=== PATIENT | male | born 1950 | race Caucasian/White ===

== ENCOUNTER 2020-05-15 16:18 | Inpatient (IN) | payer OTHER ==
[~2020-05-15 16:18] MED LIST: Heparin 1,000 UNITS/ML VIAL ONE
[2020-05-15 17:30] LABS: #Basophils 0.1 thou/uL (0.0-0.2); #Eosinphils 0.2 thou/uL (0.0-0.7); #Lymphocytes 1.3 thou/uL (1.20-3.40); #Monocytes 0.9 thou/uL (0.11-0.59); #Neutrophils 12.2 thou/uL (1.40-6.50); %Basophils 0.4 % (0.0-1.0); %Eosinophils 1.1 % (0.0-10.0); %Lymphocytes 8.7 % (21.0-51.0); %Monocytes 6.4 % (0.0-10.0); %Neutrophils 83.4 % (42.0-75.0); Hemoglobin 10.7 g/dL (14.0-18.0); Mean Corpuscular HGB CONC 31.9 g/dL (32.0-36.0); Mean Corpuscular Hemoglobin 26.9 pg (27.0-31.0); Mean Corpuscular Volume 84.4 fL (78.0-98.0); Mean Platelet Volume 7.2 fL (7.4-10.4); Platelet Count 316 thou/uL (130-400); Red Blood Cell (RBC) Count 3.98 mill/uL (4.70-6.10); White Blood Cell (WBC) Count 14.6 thou/uL (4.8-10.8)
--- NOTE | 2020-05-15 17:39 | RAD ---
RADIOGRAPH CHEST 1 VIEW: DATE: 05/15/2020 TIME: 5:20 PM HISTORY: 70-year-old male with fever. COMPARISON: 05/12/2020 FINDINGS: New finding of mild small region of haziness at right lung base. The rest of the lungs remain clear. No cardiomegaly or pneumothorax. Sternotomy wires. IMPRESSION: New mild faint patchy density at right lung base: Atelectasis versus pneumonia. Recommend follow-up.
[2020-05-15 18:18] LABS: ALT (SGPT) Less than 7 U/L (8-55); AST (SGOT) 9 U/L (5-34); Albumin 2.5 g/dL (3.4-4.8); Alkaline Phosphatase 112 U/L (40-110); Anion Gap 13 mmol/L (10-20); BUN (Urea Nitrogen) 26 mg/dL (8.4-25.7); Bilirubin, Total 0.4 mg/dL (0.2-1.2); Calc. Creatinine Clearance 0 mL/min (70-130); Calcium 7.8 mg/dL (7.8-10.44); Carbon Dioxide 26 mmol/L (23-31); Chloride 103 mmol/L (98-107); Estimated GFR-MDRD 62; Globulin 4.1 g/dL (2.4-3.5); Glucose 118 mg/dL (80-115); Potassium 3.8 mmol/L (3.5-5.1); Protein, Total 6.6 g/dL (5.8-8.1); Sodium 138 mmol/L (136-145)
[2020-05-15 19:11] LABS: Bilirubin Negative (Negative); Blood, Urine 3+ (Negative); Clarity Extra Turbid (Clear); Glucose, Urine (Dipstick) Normal (Negative); Ketone, Urine Negative (Negative); Leukocyte 500 Leu/uL (Negative); Nitrite Negative (Negative); Protein, Urine (Dipstick) 100 mg/dL (Neg-Trace); RBC/HPF Greater than 50 HPF (0-3); Specific Gravity, Urine 1.017 (1.002-1.036); Squamous Epithelial 0-3 HPF (0-3); Urobilinogen Normal mg/dL (Less than 2); WBC/HPF Greater than 50 HPF (0-3); pH, Urine 6.5 (5.0-9.0)
[2020-05-15] MEDS ORDERED: HYDROcodone/Acetaminophen 5/325 mg Tablet PO PRN (19:28)
[2020-05-15] MEDS ORDERED: Calcium Carbonate 500 MG ChewTAB PO PRN (19:28)
[2020-05-15] MEDS ORDERED: Acetaminophen 325 MG TAB PO PRN (19:28)
[2020-05-15] MEDS ORDERED: Acetaminophen 650 MG Suppository PR PRN (19:28)
[2020-05-15] MEDS ORDERED: Guaifenesin DM 100-10/5 ML UDCUP PO PRN (19:28)
[2020-05-15 19:32] LABS: Bacteria/HPF 1+ HPF (None Seen); Yeast-Budding Rare HPF (None Seen)
--- NOTE | 2020-05-15 19:34 | PDOC.HHP ---
Hospitalist HPI - History of Present Illness fever History of Present Illness: Case of an 70y/o male with pmhx of DM, htn, hld, pvd, systolic chf, cad s/p cabg on 04/17/2020 who was brought to hospital for evaluation for fever and picc line placement. apparently he was on his usual state of health until a few days ago when he started with fever, patient is a very poor historian and states he was getting abx but does not know for what, [facility] charts reports he was been treated for uti. at ed patient was evaluated and found in sepsis with elevated wbc count with a possible rll pneumonia, also there was suppuration from his sternotomy site. patient denies any cough dysuria chest pain fever chills but there was reported fever at [facility]. Hospitalist ROS - Review of Systems All other systems reviewed; all pertinent +/- noted in HPI/Subj Hospitalist History - Past Surgical History Past Surgical History: reports: CABG Other Surgical History: l partial foot amputation r aka - Family History Family History: reports: no pertinent history - Social History Smoking Status: Current some day smoker Alcohol: reports: None Drugs: reports: none - Exam General Appearance: NAD, ill appearing Eye: PERRL, anicteric sclera ENT: normocephalic atraumatic, no oropharyngeal lesions Neck: supple, symmetric, no JVD, no thyromegaly Heart: RRR, no murmur, no gallops, no rubs Respiratory: CTAB, no wheezes, no rales, no ronchi Gastrointestinal: soft, non-tender, non-distended, normal bowel sounds Extremities: no clubbing, no edema Skin: normal turgor, no lesions, no rashes Neurological: cranial nerve grossly intact, normal sensation to touch, no weakness Musculoskeletal: normal tone, normal strength, no muscle wasting Psychiatric: normal affect, normal behavior, A&O x 3 Hospitalist Results - Labs Result Diagrams: 05/15/20 17:23 05/15/20 17:23 Lab results: WBC 14.6 thou/uL (4.8-10.8) H 05/15/20 17:23 Hgb 10.7 g/dL (14.0-18.0) L 05/15/20 17:23 Hct 33.6 % (42.0-52.0) L 05/15/20 17:23 MCV 84.4 fL (78.0-98.0) 05/15/20 17:23 Plt Count 316 thou/uL (130-400) 05/15/20 17:23 Neutrophils % 83.4 % (42.0-75.0) H 05/15/20 17:23 Sodium 138 mmol/L (136-145) 05/15/20 17:23 Potassium 3.8 mmol/L (3.5-5.1) 05/15/20 17:23 Chloride 103 mmol/L (98-107) 05/15/20 17:23 Carbon Dioxide 26 mmol/L (23-31) 05/15/20 17:23 BUN 26 mg/dL (8.4-25.7) H 05/15/20 17:23 Creatinine 1.16 mg/dL (0.7-1.3) 05/15/20 17:23 Glucose 118 mg/dL (80-115) H 05/15/20 17:23 Lactic Acid 2.4 mmol/L (0.5-2.2) H 05/15/20 17:23 Calcium 7.8 mg/dL (7.8-10.44) 05/15/20 17:23 Total Bilirubin 0.4 mg/dL (0.2-1.2) 05/15/20 17:23 AST 9 U/L (5-34) 05/15/20 17:23 ALT Less than 7 U/L (8-55) L 05/15/20 17:23 Alkaline Phosphatase 112 U/L (40-110) H 05/15/20 17:23 Serum Total Protein 6.6 g/dL (5.8-8.1) 05/15/20 17:23 Albumin 2.5 g/dL (3.4-4.8) L 05/15/20 17:23 Urine Ketones Negative mg/dL (Negative) 05/15/20 18:24 Urine Blood 3+ (Negative) A 05/15/20 18:24 Urine Nitrite Negative (Negative) 05/15/20 18:24 Ur Leukocyte Esterase 500 Rory/uL (Negative) A 05/15/20 18:24 Urine RBC Greater than 50 HPF (0-3) A 05/15/20 18:24 Urine WBC Greater than 50 HPF (0-3) A 05/15/20 18:24 Ur Squamous Epith Cells 0-3 HPF (0-3) 05/15/20 18:24 Urine Bacteria 1+ HPF (None Seen) A 05/15/20 18:24 Hospitalist H&P A/P - Problem (1) Sepsis Code(s): A41.9 - SEPSIS, UNSPECIFIED ORGANISM Status: Acute (2) Pneumonia Code(s): J18.9 - PNEUMONIA, UNSPECIFIED ORGANISM Status: Acute (3) CAD (coronary artery disease) Code(s): I25.10 - ATHSCL HEART DISEASE OF [place] CORONARY ARTERY W/O ANG PCTRS Status: Acute (4) UTI (urinary tract infection) Status: Acute - Plan Plan: Case of an 70y/o male with the stated pmhx who present with sepsis secondary to pneumonia sepsis secondary to pneumonia - elevated wbc at 14k + elevated LA 2.8 + fever with a cxr consistent rll pneumonia - sepsis bundles started ivfs given, cultures taken started on broad spectrum abx - recent hospitalization in this month for CABG - will continue with zosyn + vanc, will order mrsa colonization swab adjust abx as needed - f/u LA - f/u cultures - duo nebs uti - apparently was been treated at [facility] for uti - will order u/a w reflex culture - should be covered with zosyn cad / htn / chf / hld - continue home meds sternotomy dehiscence - mild dehiscence with purulent secretions - wound care consulted - should be covered w van+zosyn
[2020-05-15 20:25] LABS: Lactic Acid 2.1 mmol/L (0.5-2.2)
[2020-05-15 20:27] LABS: SARS-CoV-2 NAA Rapid Test Not Detected (NotDetected)
[2020-05-15] MEDS ORDERED: Dextrose 5% in Water 1,000 ML IV PRN (20:45)
[2020-05-15] MEDS ORDERED: Dextrose 50% Abboject 50 ML SYRINGE SLOW IVP PRN (20:45)
[2020-05-15] MEDS ORDERED: Piperacillin/Tazobactam 4.5 GM in Sodium Chloride 0.9% 100 ML IVPB SCH (23:59)
[2020-05-16 00:15] VITALS: BMI 19.5
[2020-05-16] MEDS ORDERED: Vancomycin 1.5 GRAM/300 ML BAG 1.5 GM in Premix Bag 1 BAG IVPB SCH (01:00)
[2020-05-16] MEDS: Insulin Glargine 10 UNITS in Pre-Filled Syringe 1 EACH SC SCH ×2 (01:11→20:06)
[2020-05-16] MEDS: Sodium Chloride 0.9% 1,000 ML IV SCH ×2 (01:11→15:30)
[2020-05-16] MEDS: Piperacillin/Tazobactam 4.5 GM in Sodium Chloride 0.9% 100 ML IVPB SCH ×4 (03:51→20:07)
[2020-05-16] MEDS: HumaLOG 300 UNITS/3 ML VIAL SC PRN ×3 (05:46→17:35)
[2020-05-16 09:01] LABS: Hemoglobin 8.9 g/dL (14.0-18.0); Mean Corpuscular HGB CONC 33.3 g/dL (32.0-36.0); Mean Corpuscular Hemoglobin 28.9 pg (27.0-31.0); Mean Corpuscular Volume 86.8 fL (78.0-98.0); Platelet Count 255 thou/uL (130-400); RBC Distribution Width 14.6 % (11.5-14.5); Red Blood Cell (RBC) Count 3.07 mill/uL (4.70-6.10); White Blood Cell (WBC) Count 9.4 thou/uL (4.8-10.8)
[2020-05-16 09:27] LABS: ALT (SGPT) Less than 7 U/L (8-55); AST (SGOT) 16 U/L (5-34); Alkaline Phosphatase 84 U/L (40-110); Anion Gap 27 mmol/L (10-20); BUN (Urea Nitrogen) 20 mg/dL (8.4-25.7); Bilirubin, Total 0.3 mg/dL (0.2-1.2); Calc. Creatinine Clearance 80 mL/min (70-130); Calcium 6.3 mg/dL (7.8-10.44); Carbon Dioxide 19 mmol/L (23-31); Chloride 107 mmol/L (98-107); Estimated GFR-MDRD Greater than 90; Globulin 3.7 g/dL (2.4-3.5); Glucose 211 mg/dL (80-115); Potassium 3.2 mmol/L (3.5-5.1); Protein, Total 5.7 g/dL (5.8-8.1); Sodium 150 mmol/L (136-145)
[2020-05-16] MEDS: Enoxaparin Sodium 40 MG/0.4 ML SYRINGE SC SCH (09:30)
[2020-05-16 11:12] LABS: Band 6 % (5-11); Eosinophils 1 % (0-10); Lymphocytes 6 % (21-51); MDiff Complete? YES; Metamyelocyte 1 % (0-0); Monocytes 4 % (0-10); Neutrophil 82 % (42-75); Platelet Morphology Comment Appears Adequate; Polychromasia SLIGHT = 2-3 cells (100X) (0-2/hpf)
--- NOTE | 2020-05-16 11:29 | SPC ---
Right upper extremity PICC placement sonographic guided HISTORY: Sepsis. FINDINGS: After explaining the procedure and answering all questions, the right upper extremity was p repped and draped in usual sterile fashion. Sterile technique, buffered local anesthesia, sonographic guidance, and a 22-gauge needle were used t o carefully access the right brachial vein. Standard technique was used to place the tip of a 5 [place] single lumen PICC so that the tip lies at the level of the superior vena cava. Catheter was flushed and secured externally. Patient tolerated the procedure well and was returned in unchanged condition. Fluoroscopy time 0 seconds. IMPRESSION : Right upper extremity PICC is ready for use.
[2020-05-16] MEDS: Vancomycin 1 GM in Premix Bag 1 BAG IVPB SCH (11:40)
--- NOTE | 2020-05-16 14:05 | ULT ---
Bilateral renal ultrasound CLINICAL INDICATION: Urinary tract infection with bacteremia. COMPARISON: None. FINDINGS: Right kidney: There is no evidence of a renal mass, renal calculus, or hydronephrosis seen. The right kidney measures 12.8 cm x 5 cm. Left kidney: Tiny 0.9 cm hypoechoic structure is seen within the midportion renal sinus fat which is difficult to further characterize on this exam. This may potentially represent a parapelvic renal cyst. There is otherwise no evidence of a renal mass, renal calculus, or hydronephrosis involving the left kidney.The left kidney measures 12.4 cm x 5.7 cm. Urinary bladder: Prevoid urinary bladder volume is 399 mL. There is echogenic material seen dependent ly within the urinary bladder which is likely related to debris. Follow-up evaluation is recommended. IMPRESSION: 1. No evidence of hydronephrosis. 2. Too small to characterize subcentimeter hypoechoic structure in the midportion renal sinus fat lef t kidney probably related to small parapelvic renal cysts. 3. Echogenic material seen dependently within the urinary bladder probably related to moderate amount of debris within the urinary bladder. Urinary bladder volume on prevoid imaging is 399 mL. Post void image was not obtained.
--- NOTE | 2020-05-16 17:07 | CON ---
DATE OF CONSULTATION: 05/16/2020 REASON FOR CONSULTATION: Bacteremia and concern with postop sternotomy site infection. HISTORY OF PRESENT ILLNESS: A 70-year-old who has a history of peripheral vascular disease, type 2 diabetes, hypertension, and coronary artery disease with prior bypass graft surgery on April [address] [facility], who was at the [facility] and developed fever. There was some dehiscence of the lower segment of the sternotomy site, so there was a concern with an infection there. Currently, the patient is awake. He is eating some ice cream. He denies any headaches. No visual symptoms, sore throat, odynophagia, or dysphagia. No vomiting, hematemesis, melena, or hematochezia. No dyspnea or cough. No pain at the sternotomy site. He has had some wounds in the left saphenectomy donor site in the left lower extremity, but those are granulating well as noted in the physical exam. He is voiding without difficulty. Denies any dysuria. No urinary retention or incontinence. PAST MEDICAL HISTORY: Type 2 diabetes, hypertension, peripheral vascular disease, prior AKA amputation right side, CHF, ischemic cardiomyopathy, bypass graft surgery, and right AKA. FAMILY HISTORY: Type 2 diabetes. SOCIAL HISTORY: Current smoker. Lives between [place] and [facility]. Alcohol, none. . No drug use. ALLERGIES: NONE. CURRENT MEDICATIONS: 1. Enoxaparin. 2. Zosyn. 3. Vancomycin. PHYSICAL EXAMINATION: VITAL SIGNS: He is afebrile, blood pressure 140/80, heart rate 92, respiratory rate 16, O2 saturation 98%. SKIN: Shows the wound in left leg medial aspect, which has a granulation about 100% at the base of the wound with very little undermining. The sternotomy site has a little bit of dehiscence in the lower segment. Very minimal erythema. I did not see any drainage at the time of the exam. No tenderness or swelling or drainage noted. The patient has a peripheral IV access. No Tucker catheter. No lymphadenopathy. HEENT: Ocular movements conjugate. Oral cavity normal except for very few remaining teeth in place. NECK: Supple. No jugular vein distention. LUNGS: Symmetric. Clear breath sounds. HEART: S1 and S2. Regular rate without murmurs. ABDOMEN: Soft, flat, not distended or tender. No ascites. : No bladder distention. No suprapubic tenderness. No genital abnormalities. EXTREMITIES: Pulses are 1+ in popliteal, left side. Femorals are 1+ in right and left side. AKA stump site has healed properly. NEUROLOGIC: Nonfocal. He is awake, knows his name, the name of the hospital, and the year. LABORATORY DATA: White cell count 14.6, down to 9.4; hemoglobin 8.9; platelets 255 with 82% neutrophils. Sodium 150, creatinine 0.82. Liver profile normal. Calcium 6.3, albumin down to 2.0. Urinalysis greater than 50 wbc's. SARS-CoV-2 PCR negative. Microbiology with Staphylococcus aureus retrieved from the surgical site. Proteus mirabilis from the blood culture and urine. IMAGING: There is a chest x-ray with patchy density right lung base. ASSESSMENT: Ischemic heart disease, type 2 diabetes, recent coronary bypass graft with some dehiscence of the lower end of the sternotomy site, fever associated with bacteremia due to Proteus, and pyuria. DISCUSSION: The differential diagnosis includes pyelonephritis, urinary retention, prostatitis, cystitis with bacteremia. This is likely reason for the patient's fever in the rehab and not the sternotomy site. Sternotomy site has some dehiscence, but is not overtly infected. There might be some superficial, but I think this can be managed with wound care alone and maybe a brief course of antimicrobial tx while in the hospital. He probably can be discharged with Bactrim for his UTI once the initial phase of treatment is completed. Check ultrasound of kidney and bladder. Job ID: [id number] [facility]
--- NOTE | 2020-05-16 17:38 | PDOC.HOSPP ---
- Subjective Encounter Date: 05/16/20 Encounter Time: 08:00 Subjective: Patient is seen for follow-up bacteremia. He denies chest pain or shortness of breath. - Objective Vital Signs & Weight: Vital Signs (12 hours) Temp Pulse Resp BP Pulse Ox 05/16/20 16:00 98.6 F 100 16 141/67 H 98 05/16/20 11:47 98.4 F 92 16 144/82 H 98 05/16/20 08:29 95 05/16/20 07:37 98.1 F 88 16 151/78 H 95 05/16/20 07:00 78 18 95 Weight Admit Weight 148 lb Weight 148 lb Result Diagrams: 05/16/20 08:43 05/16/20 08:43 Additional Labs: Accuchecks 05/16/20 05/16/20 05/16/20 11:35 04:34 00:18 POC Glucose 296 H 211 H 202 H Labs and MAR reviewed by me Hospitalist ROS - Review of Systems Gastrointestinal: denies: nausea, vomiting, abdominal pain, diarrhea, constipation, melena, hematochezia Genitourinary: denies: dysuria, frequency, incontinence, hematuria, retention - Medication Medications: Active Medications Generic Name Dose Route Start Last Admin Trade Name Freq PRN Reason Stop Dose Admin Albuterol/Ipratropium 3 ml 05/16/20 01:00 05/16/20 07:00 Ipratropium/Albuterol Sulfate 3 Ml Neb NEB 3 ml [id number] PAM Administration Enoxaparin Sodium 40 mg 05/16/20 09:00 05/16/20 09:30 Enoxaparin Sodium 40 Mg/0.4 Ml Syringe SC Not Given 0900 PAM Sodium Chloride 1,000 mls @ 50 mls/hr 05/15/20 19:30 05/16/20 15:30 Normal Saline 0.9% IV Not Given .Q20H PAM Insulin Glargine 10 units/ 0.1 mls @ 0 mls/hr 05/15/20 21:00 05/16/20 01:11 Miscellaneous Medication SC Not Given HS PAM Vancomycin HCl 1 gm/ Device 200 mls @ 200 mls/hr 05/16/20 12:00 05/16/20 11:40 IVPB 200 mls 1200,2359 PAM Administration Piperacillin Sod/Tazobactam 100 mls @ 200 mls/hr 05/16/20 03:00 05/16/20 14:06 Sod 4.5 gm/ Sodium Chloride IVPB 100 mls 0300,0900,1500,2100 PAM Administration Insulin Human Lispro 0 units 05/15/20 20:45 05/16/20 11:39 Humalog 300 Units/3 Ml Vial SC 4 unit .MILD SLIDING SCALE PRN Administration Mild Correctional Scale - Exam General Appearance: awake alert Eye: anicteric sclera ENT: moist mucosa Neck: supple Heart: RRR, no rubs Respiratory: CTAB Gastrointestinal: soft, non-tender Extremities: no clubbing Psychiatric: normal affect, normal behavior Hosp A/P - Plan -Assessment (1) bacteremia Code(s): A41.9 - SEPSIS, UNSPECIFIED ORGANISM Status: Acute (2) UTI (urinary tract infection) Status: Acute (3) CAD (coronary artery disease) Code(s): I25.10 - ATHSCL HEART DISEASE OF [place] CORONARY ARTERY W/O ANG PCTRS Status: Chronic (4) Pneumonia Code(s): J18.9 - PNEUMONIA, UNSPECIFIED ORGANISM Status: Ruled out - Plan Patient seen by infectious disease service. It is felt that his presentation is secondary to urinary tract infection and not due to sternal wound infection. Continue antibiotics and transition to Bactrim. Urinary tract infection secondary to Proteus mirabilis.
[2020-05-17] MEDS: Vancomycin 1 GM in Premix Bag 1 BAG IVPB SCH (00:58)
[2020-05-17] MEDS: Piperacillin/Tazobactam 4.5 GM in Sodium Chloride 0.9% 100 ML IVPB SCH ×4 (03:10→20:05)
[2020-05-17] MEDS: HumaLOG 300 UNITS/3 ML VIAL SC PRN ×4 (06:21→20:04)
[2020-05-17] MEDS: Enoxaparin Sodium 40 MG/0.4 ML SYRINGE SC SCH (08:06)
[2020-05-17] MEDS: Sodium Chloride 0.9% 1,000 ML IV SCH (08:07)
[2020-05-17 11:20] LABS: Vancomycin, Trough 20.1 ug/mL
[2020-05-17] MEDS: Vancomycin HCl 750 MG in Sodium Chloride 0.9% 250 ML 250 ML IVPB SCH ×2 (13:33→23:51)
--- NOTE | 2020-05-17 17:58 | PDOC.HOSPP ---
- Subjective Encounter Date: 05/17/20 Encounter Time: 08:30 Subjective: Patient seen for follow-up regarding UTI. Denies chest pain or shortness of breath. Denies fever or chills. - Objective Vital Signs & Weight: Vital Signs (12 hours) Temp Pulse Pulse Pulse Resp BP BP 05/17/20 16:32 98.4 F 90 16 05/17/20 13:50 97 97 149/69 H 149/94 H 05/17/20 13:16 81 16 05/17/20 11:14 98.7 F 78 16 05/17/20 08:10 05/17/20 07:57 98.4 F 89 12 BP Pulse Ox 05/17/20 16:32 155/85 H 98 05/17/20 13:50 05/17/20 13:16 97 05/17/20 11:14 163/88 H 97 05/17/20 08:10 98 05/17/20 07:57 150/83 H 98 Weight Admit Weight 148 lb Weight 148 lb I&O: 05/16/20 05/17/20 05/18/20 06:59 06:59 06:59 Intake Total 1300 1600 Output Total 680 600 Balance 620 1000 Result Diagrams: 05/16/20 08:43 05/16/20 08:43 Additional Labs: Accuchecks 05/17/20 05/16/20 04:29 19:50 POC Glucose 212 H 249 H I reviewed patient's labs and MAR Hospitalist ROS - Review of Systems Cardiovascular: denies: chest pain, palpitations, orthopnea, paroxysmal noc. dyspnea, edema Gastrointestinal: denies: nausea, vomiting, abdominal pain, diarrhea, constipation, melena Skin: denies: rash, lesions, kathia, bruising - Medication Medications: Active Medications Generic Name Dose Route Start Last Admin Trade Name Freq PRN Reason Stop Dose Admin Albuterol/Ipratropium 3 ml 05/16/20 01:00 05/17/20 13:16 Ipratropium/Albuterol Sulfate 3 Ml Neb NEB 3 ml [id number] PAM Administration Enoxaparin Sodium 40 mg 05/16/20 09:00 05/17/20 08:06 Enoxaparin Sodium 40 Mg/0.4 Ml Syringe SC 40 mg 0900 PAM Administration Sodium Chloride 1,000 mls @ 50 mls/hr 05/15/20 19:30 05/17/20 08:07 Normal Saline 0.9% IV 1,000 mls .Q20H PAM Administration Insulin Glargine 10 units/ 0.1 mls @ 0 mls/hr 05/15/20 21:00 05/16/20 20:06 Miscellaneous Medication SC 0.1 mls HS PAM Administration Piperacillin Sod/Tazobactam 100 mls @ 200 mls/hr 05/16/20 03:00 05/17/20 15:33 Sod 4.5 gm/ Sodium Chloride IVPB 100 mls 0300,0900,1500,2100 PAM Administration Vancomycin HCl 750 mg/ Sodium 250 mls @ 250 mls/hr 05/17/20 12:00 05/17/20 13:33 Chloride IVPB 250 mls 1200,2359 PAM Administration Insulin Human Lispro 0 units 05/15/20 20:45 05/17/20 17:41 Humalog 300 Units/3 Ml Vial SC 4 unit .MILD SLIDING SCALE PRN Administration Mild Correctional Scale - Exam General Appearance: awake alert Eye: anicteric sclera ENT: moist mucosa Neck: supple Heart: RRR Respiratory: CTAB Gastrointestinal: soft, non-tender Musculoskeletal - other findings: S/p right above-knee amputation Psychiatric: normal affect Hosp A/P - Plan -Assessment (1) UTI (urinary tract infection) Status: Acute (2) bacteremia Code(s): A41.9 - SEPSIS, UNSPECIFIED ORGANISM Status: Acute (3) CAD (coronary artery disease) Code(s): I25.10 - ATHSCL HEART DISEASE OF [place] CORONARY ARTERY W/O ANG PCTRS Status: Chronic (4) Pneumonia Code(s): J18.9 - PNEUMONIA, UNSPECIFIED ORGANISM Status: Ruled out - Plan Continue IV antibiotics for now, switch to Bactrim at the time of discharge. Patient has UTI from Proteus mirabilis. Ambulate patient.
[2020-05-17] MEDS: Insulin Glargine 10 UNITS in Pre-Filled Syringe 1 EACH SC SCH (20:03)
[2020-05-18] MEDS: Piperacillin/Tazobactam 4.5 GM in Sodium Chloride 0.9% 100 ML IVPB SCH ×2 (03:15→08:08)
[2020-05-18] MEDS: HumaLOG 300 UNITS/3 ML VIAL SC PRN ×2 (06:01→11:25)
[2020-05-18] MEDS: Enoxaparin Sodium 40 MG/0.4 ML SYRINGE SC SCH (08:08)
[2020-05-18] MEDS: Sodium Chloride 0.9% 1,000 ML IV SCH ×2 (08:10→12:25)
[2020-05-18 11:28] LABS: #Basophils 0.1 thou/uL (0.0-0.2); #Eosinphils 0.3 thou/uL (0.0-0.7); #Lymphocytes 1.2 thou/uL (1.20-3.40); #Monocytes 0.7 thou/uL (0.11-0.59); #Neutrophils 6.7 thou/uL (1.40-6.50); %Basophils 0.7 % (0.0-1.0); %Eosinophils 3.1 % (0.0-10.0); %Lymphocytes 13.1 % (21.0-51.0); %Monocytes 8.1 % (0.0-10.0); Hemoglobin 10.4 g/dL (14.0-18.0); Mean Corpuscular HGB CONC 32.5 g/dL (32.0-36.0); Mean Corpuscular Hemoglobin 27.6 pg (27.0-31.0); Mean Corpuscular Volume 84.7 fL (78.0-98.0); Platelet Count 409 thou/uL (130-400); RBC Distribution Width 14.5 % (11.5-14.5); Red Blood Cell (RBC) Count 3.77 mill/uL (4.70-6.10); White Blood Cell (WBC) Count 8.9 thou/uL (4.8-10.8)
[2020-05-18 11:37] VITALS: TEMP 98.6
[2020-05-18] MEDS: Vancomycin HCl 750 MG in Sodium Chloride 0.9% 250 ML 250 ML IVPB SCH (11:42)
[2020-05-18 11:52] LABS: ALT (SGPT) Less than 7 U/L (8-55); AST (SGOT) 10 U/L (5-34); Albumin 2.4 g/dL (3.4-4.8); Alkaline Phosphatase 90 U/L (40-110); Anion Gap 14 mmol/L (10-20); BUN (Urea Nitrogen) 10 mg/dL (8.4-25.7); Bilirubin, Total 0.3 mg/dL (0.2-1.2); Calc. Creatinine Clearance 82 mL/min (70-130); Calcium 7.7 mg/dL (7.8-10.44); Carbon Dioxide 25 mmol/L (23-31); Chloride 104 mmol/L (98-107); Estimated GFR-MDRD Greater than 90; Globulin 3.9 g/dL (2.4-3.5); Glucose 260 mg/dL (80-115); Protein, Total 6.3 g/dL (5.8-8.1); Sodium 140 mmol/L (136-145)
[2020-05-18 12:01] LABS: Potassium 2.9 mmol/L (3.5-5.1)
[2020-05-18] MEDS ORDERED: Potassium Chloride 20 MEQ TAB PO SCH (13:00)
[2020-05-18] MEDS ORDERED: cefTRIAXone\\ROCEPHIN 1 GM in Sodium Chloride 0.9% 100 ML IVPB SCH (13:00)
--- NOTE | 2020-05-18 14:33 | PDOC.DS.DS ---
Provider - Provider Date of Admission: 05/15/20 19:28 Date of Discharge: 05/18/20 Admitting Provider: Александр Obregon Consultations: Infectious Disease (Dr. Villar) Primary Care Physician: Rocky Avalos MD Course - Hospital Course Hospital Course: Discharge diagnosis: 1. Sepsis 2. Urinary tract infection 3. Bacteremia 4. Small parapelvic renal cysts 5. hypokalemia 6. Hyponatremia Hospital course: Patient is a pleasant 70-year-old gentleman who was admitted to the hospital on May 15, 2020 for sepsis. There was concern regarding pneumonia but this was ruled out. He had urinary tract infection as well as bacteremia from samples submitted prior to this hospitalization. Urine culture grew Proteus mirabilis that was resistant to fluoroquinolones and nitrofurantoin. 1 out of 2 blood cultures from May 14 grew Proteus mirabilis that was resistant to fluoroquinolones and Bactrim. Sternal wound cultures grew MRSA. He was seen by infectious disease service. It was felt that his presentation was more related to sepsis secondary to urinary tract infection. He is being discharged back to [facility] inpatient rehab on ceftriaxone. Patient is advised to follow-up with primary care provider for final blood cultu re result. Many thanks for allowing me to participate in your patient's care. Please feel free to contact me with any questions or concerns. Resuscitation Status: 05/15/20 19:28 Resuscitation Status Routine Resuscitation Status: FULL: Full Resuscitation - Labs Lab Results: 05/18/20 11:15 05/18/20 11:15 Abnormal Lab Results - Last 48 hrs 05/18/20 11:15: Potassium 2.9 L*, Calcium 7.7 L, ALT Less than 7 L, Albumin 2.4 L, Globulin 3.9 H, Albumin/Globulin Ratio 0.6 L 05/18/20 11:15: RBC 3.77 L, Hgb 10.4 L, Hct 32.0 L, Plt Count 409 H, MPV 7.0 L, Lymphocytes % 13.1 L, Neutrophils # 6.7 H, Monocytes # 0.7 H Microbiology - Entire Visit 05/15/20 18:24 Urine clean catch Urine Culture - Final NO GROWTH AT 48 HOURS 05/15/20 17:33 Venous blood - Left Hand Blood Culture - Preliminary NO GROWTH AT 48 HOURS 05/15/20 17:22 Venous blood - Right Arm Blood Culture - Preliminary NO GROWTH AT 48 HOURS 05/16/20 00:59 Axilla - Incision MRSA Screen - Final Negative--No MRSA Colonization 05/16/20 00:59 Nares MRSA Screen - Final Negative--No MRSA Colonization - Physical Exam Vitals: Vital Signs (12 hours) Temp Pulse Resp BP Pulse Ox 05/18/20 11:37 98.6 F 91 16 163/84 H 05/18/20 07:40 100 05/18/20 07:37 97.3 F L 85 16 164/72 H 100 05/18/20 07:27 97 05/18/20 07:26 69 16 97 05/18/20 04:00 92 22 H 183/92 H 93 L Weight Admit Weight 148 lb Weight 148 lb Physical Exam: The patient was seen and examined on the day of discharge. Patient denies chest pain or shortness of breath. Vital signs are stable. S1 and S2 are heard. Lungs are clear to auscultation bilaterally. Problem - Time spent with Patient (mins): 31 Plan - Discharge Medications Home Medications: Medication Instructions Recorded Confirmed Type Acetaminophen With Codeine 1 each PO Q4HR PRN 05/16/20 05/16/20 History [Acetaminophen-Cod #3 Tablet] Acetaminophen [Tylenol Extra 500 mg PO Q4HR PRN 05/16/20 05/16/20 History Strength] Amlodipine [Norvasc] 5 mg PO DAILY 05/16/20 05/16/20 History Aspirin [Ecotrin Low Strength] 81 mg PO DAILY 05/16/20 05/16/20 History Atorvastatin Calcium [Lipitor] 10 mg PO HS 05/16/20 05/16/20 History Bisacodyl [Dulcolax] 10 mg [place] DAILY PRN 05/16/20 05/16/20 History Calcium Carbonate [Oscal-500] 500 mg PO TID PRN 05/16/20 05/16/20 History Clopidogrel Bisulfate [Plavix] 75 mg PO DAILY 05/16/20 05/16/20 History Dextrose 50 % In Water [Dextrose 25 gm IV ASDIR 05/16/20 05/16/20 History 50%-Water Syringe] Dextrose [Glucose Gel] 15 gm PO ASDIR 05/16/20 05/16/20 History Gabapentin 600 mg PO TID 05/16/20 05/16/20 History Glucagon 1 mg IM ONE 05/16/20 05/16/20 History Insulin Lispro 100 unit SQ ASDIR 05/16/20 05/16/20 History Melatonin [Melatin] 3 mg PO HS 05/16/20 05/16/20 History Metoprolol Tartrate 75 mg PO BID 05/16/20 05/16/20 History Mirtazapine 15 mg PO HS 05/16/20 05/16/20 History Multivit with Iron,Minerals 1 each PO DAILY 05/16/20 05/16/20 History [Complete Senior] Ondansetron HCl [Zofran] 4 mg PO Q6HR PRN 05/16/20 05/16/20 History Pantoprazole [Protonix] 40 mg PO DAILY 05/16/20 05/16/20 History Polyethylene Glycol 3350 [Miralax] 17 gm PO DAILY PRN 05/16/20 05/16/20 History Simethicone [Mi-Acid] 80 mg PO TID PRN 05/16/20 05/16/20 History Tamsulosin HCl [Flomax] 0.4 mg PO HS 05/16/20 05/16/20 History metFORMIN [Glucophage] 1,000 mg PO BID-WM 05/16/20 05/16/20 History traMADol HCl [Tramadol HCl] 50 mg PO Q6HR PRN 05/16/20 05/16/20 History Potassium Chloride [K-Dur] 40 meq PO ASDIR #1 tab 05/18/20 Rx cefTRIAXone\ROCEPHIN [Rocephin] 1 gm IVPB Q24HR #10 vial 05/18/20 Rx Allergies: No Known Allergies Allergy (Verified 05/16/20 00:16) - Discharge Instructions Activity:: Activity as Tolerated Nourishment:: Diabetic Diet, Heart Healthy Diet - Follow up Plan Referrals: Amrik Villar MD [Active] - Rocky Avalos MD [Primary Care Provider] - 7 Days Disposition: HOME Quality - Care Measures CORE MEASURES:: N/A
[2020-05-18 14:40] VITALS: BP 160/78
--- NOTE | 2020-05-18 16:28 | PRG ---
DATE OF SERVICE: 05/18/2020 SUBJECTIVE: Mr. Ibarra is stable. He denies any chest pain. No abdominal pain or diarrhea. No genitourinary symptoms. He has been afebrile. OBJECTIVE: VITAL SIGNS: BP 160/70, heart rate 80, he is breathing 20 times a minute, saturating 99 on room air. Sternotomy site appears okay except for the dehiscences, very minimal erythema around it and minimal drainage. EXTREMITIES: The left leg medial wound has nice granulation. LUNGS: Clear. HEART: S1, S2, regular rate. ABDOMEN: Soft, not distended. No bladder distention. Voiding in the urinal. LABORATORY DATA: The white cell count 8.9, hemoglobin 10.4, platelets 409. Creatinine 0.8. Culture, now the Proteus mirabilis from the blood culture is resistant to Bactrim unfortunately, so I guess we can switch him to oral ampicillin to which both strains, both the urine one and the blood culture are susceptible. The dose will be 1 g of ampicillin or amoxicillin 1 g given q.8 hours for another, I would say, 10 days approximately. Could also continue with Rocephin since he already has a Picc. Job ID: [id number] [facility]
== END 2020-05-18 15:08 | DRG 872 ==
LOC: ERS 16:18 → T4-A 19:28
PROVIDERS: ADMIT Internal Medicine; ATTEND Internal Medicine
PROC: 02HV33Z Insertion of Infusion Device into Superior Vena Cava, Percutaneous Approach (ICD-10-PCS; principal; 2020-05-16)
DX: A41.9 Sepsis, unspecified organism (principal); I50.22 Chronic systolic (congestive) heart failure; N39.0 Urinary tract infection, site not specified; T81.31XA Disruption of external operation (surgical) wound, not elsewhere classified, initial encounter; Z16.23 Resistance to quinolones and fluoroquinolones; E87.1 Hypo-osmolality and hyponatremia; E87.6 Hypokalemia; I25.10 Atherosclerotic heart disease of native coronary artery without angina pectoris; E78.5 Hyperlipidemia, unspecified; E11.9 Type 2 diabetes mellitus without complications; F17.210 Nicotine dependence, cigarettes, uncomplicated; I73.9 Peripheral vascular disease, unspecified; Y83.9 Surgical procedure, unspecified as the cause of abnormal reaction of the patient, or of later complication, without mention of misadventure at the time of the procedure; I11.0 Hypertensive heart disease with heart failure; I25.5 Ischemic cardiomyopathy; B96.4 Proteus (mirabilis) (morganii) as the cause of diseases classified elsewhere; N28.1 Cyst of kidney, acquired; Z20.828 Contact with and (suspected) exposure to other viral communicable diseases; I25.2 Old myocardial infarction; Z89.611 Acquired absence of right leg above knee; Z95.1 Presence of aortocoronary bypass graft; Z89.432 Acquired absence of left foot
CPT/HCPCS: 36415; 36416; 36569; 71045; 76770; 80053; 80202; 81003; 81015; 83605; 84145; 85007; 85025; 85027; 87040; 87081; 87086; 93005; 94640; C1751; J0696; J1644; J1650; J1815; J2543; J3370; J3490; J7050; J7620; U0002

== ENCOUNTER 2020-11-20 08:44 | Outpatient (CLI) | payer OTHER | END 2020-11-20 08:45 | disposition home or self-care (01) | LOC: BICULT 08:44 | PROVIDERS: ATTEND Internal Medicine Nephrology | DX: N17.9 Acute kidney failure, unspecified (principal) | CPT/HCPCS: 76770; 93975 ==

== ENCOUNTER 2024-02-29 21:40 | Inpatient (IN) | payer MEDICARE, OTHER ==
[2024-02-29] MEDS ORDERED: Ondansetron ODT 4 MG TAB SL PRN (22:30)
[2024-02-29] MEDS ORDERED: Ondansetron PF 4 MG/2 ML Vial IVP PRN (22:30)
[2024-02-29] MEDS ORDERED: Acetaminophen 325 MG TAB PO PRN (22:40)
[2024-02-29] MEDS ORDERED: Acetaminophen 650 MG Suppository PR PRN (22:40)
[2024-02-29] MEDS ORDERED: Ondansetron ODT 4 MG TAB PO PRN (22:40)
[2024-02-29 23:45] LABS: #Basophils 0.04 10x3/uL (0.0-0.2); %Basophils 0.3 % (0.0-1.0); %Eosinophils 0.2 % (0.0-10.0); %Lymphocytes 8.2 % (21.0-51.0); %Monocytes 9.6 % (0.0-10.0); %Neutrophils 80.9 % (42.0-75.0); Hematocrit 49.7 % (42.0-52.0); Hemoglobin 16.6 g/dL (14.0-18.0); Mean Corpuscular HGB CONC 33.4 g/dL (32.0-36.0); Mean Corpuscular Hemoglobin 29.4 pg (27.0-31.0); Mean Corpuscular Volume 88.1 fL (78.0-98.0); Mean Platelet Volume 9.8 fL (7.4-10.4); Platelet Count 338 10x3/uL (130-400); RBC Distribution Width 15.7 % (11.5-14.5); Red Blood Cell (RBC) Count 5.64 mill/uL (4.70-6.10)
[2024-03-01 00:10] LABS: Anion Gap 21 mmol/L (10-20); BUN (Urea Nitrogen) 86 mg/dL (8.4-25.7); Calc. Creatinine Clearance 0 mL/min (70-130); Calcium 8.6 mg/dL (7.8-10.44); Carbon Dioxide 17 mmol/L (23-31); Chloride 114 mmol/L (98-107); Estimated GFR 24; Glucose 267 mg/dL (83-110); Potassium 4.1 mmol/L (3.5-5.1); Sodium 148 mmol/L (136-145)
[2024-03-01 01:01] LABS: A1c 391.239 g/dL; Hb (HGBA1c) 5689.6386 umol/L; Hemoglobin A1c 8.4 % (4.0-6.0)
[2024-03-01] MEDS ORDERED: Glucagon 1 MG/ML KIT IM PRN (01:47)
[2024-03-01 06:05] LABS: Lactic Acid 2.36 mmol/L (0.5-2.2)
[2024-03-01 06:11] LABS: ALT (SGPT) 9 U/L (8-55); AST (SGOT) 10 U/L (5-34); Albumin 3.2 g/dL (3.4-4.8); Alkaline Phosphatase 78 U/L (40-110); Anion Gap 20 mmol/L (10-20); BUN (Urea Nitrogen) 87 mg/dL (8.4-25.7); Bilirubin, Total 0.4 mg/dL (0.2-1.2); Calc. Creatinine Clearance 0 mL/min (70-130); Calcium 8.6 mg/dL (7.8-10.44); Carbon Dioxide 17 mmol/L (23-31); Chloride 115 mmol/L (98-107); Estimated GFR 24; Globulin 4.2 g/dL (2.4-3.5); Glucose 276 mg/dL (83-110); Potassium 4.2 mmol/L (3.5-5.1); Protein, Total 7.4 g/dL (5.8-8.1); Sodium 148 mmol/L (136-145)
[2024-03-01] MEDS: D5 1/2 NS w/20 mEq KCL 1,000 ML IV SCH (06:37)
[2024-03-01] MEDS: Insulin Lispro 100 UNIT/ML 10 ML VIAL SC PRN (06:52)
[2024-03-01] MEDS ORDERED: Amlodipine 5 MG TAB PO SCH (09:00)
[2024-03-01] MEDS ORDERED: Electrolyte Replacement Protocol 1 EACH IVPB SCH (09:54)
[2024-03-01] MEDS ORDERED: Dextrose 5 %-0.45 % NaCl 1,000 ML IV PRN (09:54)
[2024-03-01] MEDS ORDERED: Insulin Lispro 100 UNIT/ML 10 ML VIAL SC PRN (09:57)
[2024-03-01] MEDS: hydrALAZINE 25 MG TAB PO SCH (10:01)
[2024-03-01] MEDS: NIFEdipine XL 30 MG ER.TAB PO SCH ×2 (10:02→12:02)
[2024-03-01] MEDS: Insulin Glargine 30 UNITS/0.3 ML VIAL SC SCH (10:03)
[2024-03-01] MEDS: Famotidine/PF 20 mg/2ml Vial SLOW IVP SCH (10:04)
[2024-03-01] MEDS: Famotidine 20 MG TAB PO SCH (10:05)
[2024-03-01 10:38] LABS: Anion Gap 19 mmol/L (10-20); BUN (Urea Nitrogen) 83 mg/dL (8.4-25.7); Calc. Creatinine Clearance 0 mL/min (70-130); Calcium 8.4 mg/dL (7.8-10.44); Carbon Dioxide 19 mmol/L (23-31); Chloride 114 mmol/L (98-107); Estimated GFR 26; Glucose 322 mg/dL (83-110); Potassium 4.6 mmol/L (3.5-5.1); Sodium 147 mmol/L (136-145)
[2024-03-01] MEDS ORDERED: Sodium Chloride 0.9% 1,000 ML IV PRN (12:08)
[2024-03-01 12:46] LABS: Glucose 357 mg/dL (83-110)
[2024-03-01 13:22] LABS: Glucose 408 mg/dL (83-110)
[2024-03-01] MEDS: Lactated Ringer's 500 ML IV SCH (13:50)
[2024-03-01 14:07] VITALS: BMI 3228.8
[2024-03-01] MEDS: INSULIN REGULAR IN 0.9 % NACL 100 ML IVPB SCH (14:20)
[2024-03-01] MEDS: NS 0.9% w/ 20 MEQ KCL 1,000 ML IV PRN (14:20)
[2024-03-01] MEDS: Ondansetron PF 4 MG/2 ML Vial IVP PRN (14:30)
[2024-03-01 14:36] LABS: Anion Gap 15 mmol/L (10-20); BUN (Urea Nitrogen) 77 mg/dL (8.4-25.7); Calc. Creatinine Clearance 29 mL/min (70-130); Calcium 8.3 mg/dL (7.8-10.44); Carbon Dioxide 19 mmol/L (23-31); Chloride 114 mmol/L (98-107); Estimated GFR 28; Glucose 383 mg/dL (83-110); Potassium 4.3 mmol/L (3.5-5.1); Sodium 144 mmol/L (136-145)
[2024-03-01] MEDS: Metoprolol Tartrate 50 MG TAB PO SCH ×2 (15:25→21:05)
[2024-03-01] MEDS: Isosorbide Mononitrate 30 MG ER.TAB PO SCH ×2 (15:25→20:53)
[2024-03-01 16:19] VITALS: BMI 21.2
[2024-03-01] MEDS: D5 1/2 NS w/20 mEq KCL 1,000 ML IV PRN (18:00)
[2024-03-01] MEDS: Dextrose 50% Abboject 50 ML SYRINGE SLOW IVP PRN (18:00)
[2024-03-01 18:28] LABS: Anion Gap 13 mmol/L (10-20); BUN (Urea Nitrogen) 63 mg/dL (8.4-25.7); Calc. Creatinine Clearance 39 mL/min (70-130); Calcium 6.6 mg/dL (7.8-10.44); Carbon Dioxide 19 mmol/L (23-31); Chloride 124 mmol/L (98-107); Estimated GFR 40; Glucose 73 mg/dL (83-110); Sodium 152 mmol/L (136-145)
[2024-03-01] MEDS: Calcium Gluc 4.6 MEQ/10 ML (100 MG/ML) SLOW IVP ONE (18:42)
[2024-03-01] MEDS: NIFEdipine XL 60 MG ER.TAB PO SCH (20:53)
[2024-03-01] MEDS: Metoclopramide HCl 10 MG TAB PO SCH (21:05)
[2024-03-01 21:11] LABS: #Basophils 0.04 10x3/uL (0.0-0.2); %Basophils 0.3 % (0.0-1.0); %Eosinophils 1.5 % (0.0-10.0); %Lymphocytes 8.9 % (21.0-51.0); %Monocytes 9.6 % (0.0-10.0); Hemoglobin 14.1 g/dL (14.0-18.0); Mean Corpuscular Hemoglobin 29.9 pg (27.0-31.0); Mean Corpuscular Volume 93.2 fL (78.0-98.0); Mean Platelet Volume 9.5 fL (7.4-10.4); Platelet Count 292 10x3/uL (130-400); RBC Distribution Width 15.4 % (11.5-14.5); Red Blood Cell (RBC) Count 4.72 mill/uL (4.70-6.10)
[2024-03-01] MEDS: CALCIUM GLUC 1 GM/NS 50 ML 1 GM in Premix 1 BAG IVPB SCH (21:11)
[2024-03-01] MEDS: QUEtiapine 25 MG TAB PO SCH (21:19)
[2024-03-01 21:42] LABS: Anion Gap 16 mmol/L (10-20); BUN (Urea Nitrogen) 61 mg/dL (8.4-25.7); Calc. Creatinine Clearance 36 mL/min (70-130); Calcium 7.6 mg/dL (7.8-10.44); Carbon Dioxide 18 mmol/L (23-31); Chloride 121 mmol/L (98-107); Estimated GFR 36; Glucose 65 mg/dL (83-110); Potassium 3.9 mmol/L (3.5-5.1); Sodium 151 mmol/L (136-145)
[2024-03-01] MEDS: Lorazepam 2 MG/ML VIAL SLOW IVP SCH (21:54)
[2024-03-02] MEDS: Dextrose 50% Abboject 50 ML SYRINGE SLOW IVP PRN (00:05)
[2024-03-02 04:01] LABS: #Basophils 0.06 10x3/uL (0.0-0.2); %Basophils 0.4 % (0.0-1.0); %Eosinophils 3.1 % (0.0-10.0); %Lymphocytes 10.7 % (21.0-51.0); %Monocytes 9.4 % (0.0-10.0); %Neutrophils 75.4 % (42.0-75.0); Hematocrit 41.2 % (42.0-52.0); Hemoglobin 13.5 g/dL (14.0-18.0); Mean Corpuscular HGB CONC 32.8 g/dL (32.0-36.0); Mean Corpuscular Hemoglobin 29.9 pg (27.0-31.0); Mean Corpuscular Volume 91.2 fL (78.0-98.0); Mean Platelet Volume 10.4 fL (7.4-10.4); Platelet Count 215 10x3/uL (130-400); RBC Distribution Width 15.6 % (11.5-14.5); Red Blood Cell (RBC) Count 4.52 mill/uL (4.70-6.10)
[2024-03-02 04:34] LABS: Anion Gap 14 mmol/L (10-20); BUN (Urea Nitrogen) 53 mg/dL (8.4-25.7); Calc. Creatinine Clearance 38 mL/min (70-130); Calcium 7.7 mg/dL (7.8-10.44); Carbon Dioxide 18 mmol/L (23-31); Chloride 122 mmol/L (98-107); Estimated GFR 38; Glucose 159 mg/dL (83-110); Potassium 4.5 mmol/L (3.5-5.1); Sodium 149 mmol/L (136-145)
[2024-03-02 04:35] LABS: Glucose 158 mg/dL (83-110)
[2024-03-02] MEDS ORDERED: Insulin Lispro 100 UNIT/ML 10 ML VIAL SC PRN (05:24)
[2024-03-02] MEDS: Sodium Chloride 0.45% 1,000 ML IV SCH (06:05)
[2024-03-02] MEDS: Sodium Bicarbonate 100 MEQ in Sterile Water 1,000 ML IV SCH (08:25)
[2024-03-02] MEDS: Insulin Glargine 30 UNITS/0.3 ML VIAL SC SCH (08:30)
[2024-03-02 08:40] LABS: Phosphorus 2.3 mg/dL (2.3-4.7)
[2024-03-02] MEDS: Insulin Lispro 100 UNIT/ML 10 ML VIAL SC PRN (11:49)
[2024-03-03 05:05] LABS: Anion Gap 13 mmol/L (10-20); BUN (Urea Nitrogen) 43 mg/dL (8.4-25.7); Calc. Creatinine Clearance 40 mL/min (70-130); Calcium 8.2 mg/dL (7.8-10.44); Carbon Dioxide 20 mmol/L (23-31); Chloride 116 mmol/L (98-107); Estimated GFR 41; Glucose 131 mg/dL (83-110); Sodium 145 mmol/L (136-145)
[2024-03-03] MEDS: Famotidine 20 MG TAB PO SCH (09:33)
[2024-03-03] MEDS: Isosorbide Mononitrate 30 MG ER.TAB PO SCH (09:33)
[2024-03-03] MEDS: Famotidine/PF 20 mg/2ml Vial SLOW IVP SCH (09:34)
[2024-03-03] MEDS: cefTRIAXone\\ROCEPHIN 1 GM in Sodium Chloride 0.9% 100 ML IVPB SCH (17:37)
[2024-03-03] MEDS: Isosorbide Mononitrate 60 MG ER.TAB PO SCH (20:49)
[2024-03-04 05:36] LABS: Anion Gap 14 mmol/L (10-20); BUN (Urea Nitrogen) 32 mg/dL (8.4-25.7); Calc. Creatinine Clearance 44 mL/min (70-130); Carbon Dioxide 23 mmol/L (23-31); Chloride 112 mmol/L (98-107); Estimated GFR 45; Glucose 158 mg/dL (83-110); Potassium 3.7 mmol/L (3.5-5.1); Sodium 145 mmol/L (136-145)
[2024-03-05 04:10] LABS: #Basophils Less than 0.03 10x3/uL (0.0-0.2); %Basophils 0.1 % (0.0-1.0); %Eosinophils 2.2 % (0.0-10.0); %Neutrophils 79.5 % (42.0-75.0); Hematocrit 43.5 % (42.0-52.0); Hemoglobin 14.7 g/dL (14.0-18.0); Mean Corpuscular HGB CONC 33.8 g/dL (32.0-36.0); Mean Corpuscular Hemoglobin 29.8 pg (27.0-31.0); Mean Corpuscular Volume 88.2 fL (78.0-98.0); Mean Platelet Volume 10.4 fL (7.4-10.4); Platelet Count 273 10x3/uL (130-400); RBC Distribution Width 15.3 % (11.5-14.5); Red Blood Cell (RBC) Count 4.93 mill/uL (4.70-6.10)
[2024-03-05 04:29] LABS: Anion Gap 15 mmol/L (10-20); BUN (Urea Nitrogen) 35 mg/dL (8.4-25.7); Calc. Creatinine Clearance 39 mL/min (70-130); Calcium 8.3 mg/dL (7.8-10.44); Carbon Dioxide 21 mmol/L (23-31); Chloride 108 mmol/L (98-107); Estimated GFR 40; Glucose 179 mg/dL (83-110); Potassium 4.1 mmol/L (3.5-5.1); Sodium 140 mmol/L (136-145)
[2024-03-05] MEDS: Sodium Chloride 0.9% 1,000 ML IV SCH (09:53)
[2024-03-06 09:43] LABS: Anion Gap 14 mmol/L (10-20); BUN (Urea Nitrogen) 24 mg/dL (8.4-25.7); Calc. Creatinine Clearance 50 mL/min (70-130); Calcium 7.8 mg/dL (7.8-10.44); Carbon Dioxide 21 mmol/L (23-31); Chloride 114 mmol/L (98-107); Estimated GFR 53; Glucose 111 mg/dL (83-110); Potassium 3.7 mmol/L (3.5-5.1); Sodium 145 mmol/L (136-145)
[2024-03-06] MEDS: Sulfameth/Trimethoprim DS 800-160mg TAB PO SCH (20:44)
[2024-03-07] MEDS: Melatonin 3 MG TAB PO PRN (00:32)
[2024-03-07 11:04] LABS: Anion Gap 15 mmol/L (10-20); BUN (Urea Nitrogen) 21 mg/dL (8.4-25.7); Calc. Creatinine Clearance 49 mL/min (70-130); Calcium 8.3 mg/dL (7.8-10.44); Carbon Dioxide 21 mmol/L (23-31); Chloride 114 mmol/L (98-107); Estimated GFR 53; Glucose 76 mg/dL (83-110); Potassium 3.7 mmol/L (3.5-5.1); Sodium 146 mmol/L (136-145)
[2024-03-07] MEDS: Finasteride 5 MG TAB PO SCH (20:32)
[2024-03-07] MEDS: Atorvastatin Calcium 10 MG TAB PO SCH (20:32)
[2024-03-07] MEDS: Tamsulosin HCl 0.4 MG CAP PO SCH (20:33)
[2024-03-07] MEDS: Dextrose 5% in Water 1,000 ML IV PRN (20:33)
[2024-03-08 08:33] LABS: #Basophils 0.04 10x3/uL (0.0-0.2); %Basophils 0.4 % (0.0-1.0); %Eosinophils 2.5 % (0.0-10.0); %Lymphocytes 13.1 % (21.0-51.0); %Monocytes 10.9 % (0.0-10.0); %Neutrophils 72.2 % (42.0-75.0); Hematocrit 40.7 % (42.0-52.0); Hemoglobin 12.9 g/dL (14.0-18.0); Mean Corpuscular HGB CONC 31.7 g/dL (32.0-36.0); Mean Corpuscular Hemoglobin 29.6 pg (27.0-31.0); Mean Corpuscular Volume 93.3 fL (78.0-98.0); Mean Platelet Volume 9.6 fL (7.4-10.4); Platelet Count 314 10x3/uL (130-400); RBC Distribution Width 14.7 % (11.5-14.5); Red Blood Cell (RBC) Count 4.36 mill/uL (4.70-6.10)
[2024-03-08 08:57] LABS: Anion Gap 13 mmol/L (10-20); BUN (Urea Nitrogen) 17 mg/dL (8.4-25.7); Calc. Creatinine Clearance 49 mL/min (70-130); Calcium 7.8 mg/dL (7.8-10.44); Carbon Dioxide 19 mmol/L (23-31); Chloride 112 mmol/L (98-107); Estimated GFR 52; Glucose 120 mg/dL (83-110); Potassium 3.6 mmol/L (3.5-5.1); Sodium 140 mmol/L (136-145)
[2024-03-08] MEDS ORDERED: Finerenone [Kerendia] 20 MG Tablet PO SCH (09:00)
[2024-03-08] MEDS: Aspirin 81 mg Enteric Coated Tablet PO SCH (09:05)
[2024-03-08] MEDS: Insulin Glargine 30 UNITS/0.3 ML VIAL SC SCH (20:30)
[2024-03-09] MEDS: Labetalol HCl 100 MG/20 ML VIAL SLOW IVP SCH (01:30)
[2024-03-09 08:18] LABS: Anion Gap 17 mmol/L (10-20); BUN (Urea Nitrogen) 18 mg/dL (8.4-25.7); Calc. Creatinine Clearance 51 mL/min (70-130); Calcium 8.1 mg/dL (7.8-10.44); Carbon Dioxide 18 mmol/L (23-31); Chloride 109 mmol/L (98-107); Estimated GFR 51; Glucose 160 mg/dL (83-110); Potassium 3.7 mmol/L (3.5-5.1); Sodium 140 mmol/L (136-145)
[2024-03-09] MEDS: Sodium Bicarbonate Tab 325 MG TAB PO SCH (10:30)
[2024-03-09] MEDS: Megestrol Acetate 40 MG TAB PO SCH (14:31)
[2024-03-09] MEDS: Furosemide 40 MG TAB PO SCH (18:22)
[2024-03-09] MEDS: hydrALAZINE 25 MG TAB PO SCH (23:02)
[2024-03-10 07:26] LABS: Anion Gap 16 mmol/L (10-20); BUN (Urea Nitrogen) 17 mg/dL (8.4-25.7); Calc. Creatinine Clearance 51 mL/min (70-130); Calcium 8.3 mg/dL (7.8-10.44); Carbon Dioxide 20 mmol/L (23-31); Chloride 109 mmol/L (98-107); Estimated GFR 53; Glucose 106 mg/dL (83-110); Potassium 3.3 mmol/L (3.5-5.1); Sodium 142 mmol/L (136-145)
[2024-03-10] MEDS: Potassium Bicarbonate/Cit Ac 20 MEQ TAB PO SCH (11:38)
[2024-03-10] MEDS: Megestrol Acetate 40 MG TAB PO SCH (11:38)
[2024-03-10 16:39] VITALS: BP 193/135; TEMP 97.9
[2024-03-10] MEDS: cloNIDine 0.2mg/24 Hour PATCH TD SCH (17:09)
[2024-03-17] MEDS ORDERED: cloNIDine 0.2mg/24 Hour PATCH TD SCH (09:00)
== END 2024-03-10 17:20 | DRG 682 ==
LOC: 2NO 21:40 → CCU 03-01 13:57 → 2NO 03-02 12:51 → T4-A 03-04 15:51
PROVIDERS: ADMIT Internal Medicine; ATTEND Internal Medicine
DX: N17.9 Acute kidney failure, unspecified (principal); E11.10 Type 2 diabetes mellitus with ketoacidosis without coma; E87.0 Hyperosmolality and hypernatremia; N30.00 Acute cystitis without hematuria; G93.49 Other encephalopathy; I13.0 Hypertensive heart and chronic kidney disease with heart failure and stage 1 through stage 4 chronic kidney disease, or unspecified chronic kidney disease; R13.10 Dysphagia, unspecified; N18.4 Chronic kidney disease, stage 4 (severe); E11.22 Type 2 diabetes mellitus with diabetic chronic kidney disease; E11.51 Type 2 diabetes mellitus with diabetic peripheral angiopathy without gangrene; I25.10 Atherosclerotic heart disease of native coronary artery without angina pectoris; I50.9 Heart failure, unspecified; E86.0 Dehydration; E11.65 Type 2 diabetes mellitus with hyperglycemia; I16.0 Hypertensive urgency; N40.0 Benign prostatic hyperplasia without lower urinary tract symptoms; B96.4 Proteus (mirabilis) (morganii) as the cause of diseases classified elsewhere; Z86.73 Personal history of transient ischemic attack (TIA), and cerebral infarction without residual deficits; Z79.82 Long term (current) use of aspirin; Z79.02 Long term (current) use of antithrombotics/antiplatelets; Z79.899 Other long term (current) drug therapy; Z79.4 Long term (current) use of insulin; Z79.84 Long term (current) use of oral hypoglycemic drugs; Z89.611 Acquired absence of right leg above knee; Z89.432 Acquired absence of left foot; Z95.1 Presence of aortocoronary bypass graft
CPT/HCPCS: 36415; 36416; 70551; 80048; 80053; 82010; 82306; 83036; 83605; 84100; 85025; 87040; A4217; J0613; J0696; J1815; J2060; J2405; J3480; J3490; J7030; J7070; J7999; S0179